=== PATIENT | male | born 1990 | race Caucasian/White ===

== ENCOUNTER 2024-02-05 22:04 | Emergency (ER) | payer MEDICAID ==
[~2024-02-05] VITALS: Ht 170.2 cm; Wt 80.0 kg
[2024-02-05 22:48] VITALS: O2SAT 99
[2024-02-06] MEDS ORDERED: AMOX1TAB16 MT (01:15)
[2024-02-06] MEDS: KETOROLAC 15MG/ML VIAL IM ONE (01:34)
[2024-02-06 01:35] VITALS: BP 122/74; PULSE 100; RESP 16; TEMP 37.05852; O2SAT 99
== END 2024-02-06 01:36 | disposition home or self-care (01) ==
LOC: ER 22:04
DX: K04.7 Periapical abscess without sinus (principal); K08.89 Other specified disorders of teeth and supporting structures
CPT/HCPCS: 99283; 96372; J1885